=== PATIENT | female | born 1960 | race Caucasian/White ===

== ENCOUNTER → 2017-04-13 | Outpatient (CLI) | payer OTHER | LOC: BMCIMAGING 08:27 | PROVIDERS: ATTEND Physician Assistant Medical | DX: Z12.31 Encounter for screening mammogram for malignant neoplasm of breast (principal) | CPT/HCPCS: G0202 ==

== ENCOUNTER 2017-07-03 16:12 | Emergency (ER) | payer OTHER ==
[2017-07-03 16:24] VITALS: RESP 18; TEMP 98.2
[2017-07-03] MEDS ORDERED: LISINOPRIL 20 MG TAB PO ONE (17:27)
[2017-07-03] MEDS ORDERED: MAG HYDROX/AL HYDROX/SIMETH 30 ML UDCUP PO ONE (17:27)
[2017-07-03] MEDS ORDERED: LIDOCAINE 2% VISCOUS 15 ML UDCUP PO ONE (17:27)
[2017-07-03] MEDS ORDERED: HYOSCYAMINE SULFATE 0.125 MG TAB PO ONE (17:27)
--- NOTE | 2017-07-03 17:32 | EDPHY ---
H & P Stated Complaint: upper abd pain x 2 wks usually resolves with pepcid/worse today/nausea Time Seen by Provider: 07/03/17 16:30 HPI/ROS: CHIEF COMPLAINT: Abdominal pain HISTORY OF PRESENT ILLNESS: This is a 57-year-old female with a history of hypertension, hepatitis-C for which treatment was not recommended, and cholecystectomy who presents with over 1 week of midepigastric discomfort. The discomfort became markedly worse today, about 3 hr ago. She took Pepcid and has had improvement since then. However she continues to feel midepigastric pain, dull in nature. She does not have nausea or vomiting. She has not had diarrhea or constipation. No urinary symptoms. No fever. She did not take her antihypertensive medications today. REVIEW OF SYSTEMS: A ten point review of systems was performed and is negative with the exception of the items mentioned in the HPI. Past medical/surgical history: 1. Hypertension 2. Hepatitis-C, no treatment 3. 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 She does not use tobacco products. General Appearance: Alert. Vital signs reviewed. Initial blood pressure 213/ 100 with repeat blood pressure of 196/103. Eyes: Pupils equal and round, no conjunctival injection, no discharge. Anicteric. ENT, Mouth: Mucous membranes are moist, no oropharyngeal erythema or edema. Neck: No lymphadenopathy, supple. Respiratory: Lungs are clear to auscultation; no wheezes, rales, or rhonchi. Cardiovascular: Regular rate and rhythm; no murmur, rub, or gallop. Gastrointestinal: Abdomen is soft and mildly tender in the midepigastrium, no guarding, no masses or organomegaly, bowel sounds normal. Skin: Warm and dry, no rashes on exposed skin, normal color. Back: Nontender to palpation over the thoracolumbar spine. No CVAT. Extremities: No lower extremity edema, no calf tenderness or swelling. Neurological: Alert and oriented. Moving all four extremities easily and equally. CRISTA. EOMI. Tongue midline. Facial expression symmetric. Psychiatric: Normal affect. - Personal History Current Tetanus/Diphtheria Vaccine: Yes - Medical/Surgical History Hx Asthma: No Hx Chronic Respiratory Disease: No Hx Diabetes: No Hx Cardiac Disease: No Hx Renal Disease: No Hx Cirrhosis: No Hx Alcoholism: No Hx HIV/AIDS: No Hx Splenectomy or Spleen Trauma: No Other PMH: hep c/htn - Social History Smoking Status: Never smoked Constitutional: Initial Vital Signs Temperature (C) 36.8 C 07/03/17 16:21 Heart Rate 54 L 07/03/17 16:21 Respiratory Rate 18 07/03/17 16:21 Blood Pressure 213/100 H 07/03/17 16:21 O2 Sat (%) 94 07/03/17 16:21 O2 Delivery Mode Room Air Allergies/Adverse Reactions: No Known Allergies Allergy (Unverified 07/03/17 16:20) Home Medications: Medication Instructions Recorded Lisinopril 07/03/17 Metoprolol Succinate 07/03/17 Pantoprazole Sodium [Protonix 40mg 40 mg PO DAILY #30 tab 07/03/17 (*)] Medical Decision Making ED Course/Re-evaluation: Patient has been hypertensive in the emergency department. She did not take her metoprolol or her lisinopril today. As it is 5:30 p.m. when I see her and she normally takes her medications at 6:30 a.m. In the morning, I will give her a partial dose of her lisinopril. Blood pressure at discharge was 161/94. She has taken Pepcid earlier today and had some relief with this medication. She has been taking it during the past week. Will try GI cocktail. CBC, chemistries, lipase, liver functions ordered. Labs reviewed. Her sodium is very slightly high at 147. She does have an anion gap of 17. Calcium is also very slightly high at 10.5. Lipase and liver functions are normal. Nothing to suggest biliary disease or pancreatitis. She has had her gallbladder removed. I am concerned about the possibility of peptic ulcer disease/gastritis. She does not drink alcohol. I am recommending follow up with Gastroenterology and have provided a referral. We also reviewed the danger signs that should prompt her to return to the emergency department. She feels somewhat better in the department, perhaps partly due the to the Pepcid that she took prior to her presentation. She was in the department long enough that I would have expected the lidocaine that was in the GI cocktail to have worn off. On reexamination her abdomen remains soft with some mild midepigastric tenderness and no guarding. I do not suspect viscus perforation. She does not have a surgical abdomen. She is given a small quantity of [place] to use in case of pain at home. I am writing her prescription for pantoprazole also. She will try this instead of Pepcid. Differential Diagnosis: I considered a differential diagnosis that includes but is not limited to pancreatitis, gastritis/peptic ulcer disease, GERD, biliary disease/retained stone, viscus perforation, and bowel obstruction. - Data Points Laboratory Results: Laboratory Results 07/03/17 16:35 07/03/17 16:35 Medications Given: Discontinued Medications Hydrocodone Bitart/Acetaminophen ([place] 5/325mg Prepack#6) 1 btl TAKEHOME EDNOW ONE Stop: 07/03/17 19:06 Last Admin: 07/03/17 19:18 Dose: 1 btl Al Hydroxide/Mg Hydroxide (Maalox Susp) 30 ml PO ONCE ONE Stop: 07/03/17 17:28 Last Admin: 07/03/17 17:36 Dose: 30 ml Hyoscyamine Sulfate (Levsin, Hyomax-Sl) 0.25 mg PO ONCE ONE Stop: 07/03/17 17:28 Last Admin: 07/03/17 17:36 Dose: 0.25 mg Lidocaine (Lidocaine 2% Viscous) 15 ml PO ONCE ONE Stop: 07/03/17 17:28 Last Admin: 07/03/17 17:36 Dose: 15 ml Lisinopril (Zestril) 40 mg PO EDNOW ONE Stop: 07/03/17 17:28 Last Admin: 07/03/17 17:35 Dose: 40 mg Departure - Departure Disposition: Home, Routine, Self-Care Clinical Impression: Abdominal pain Qualifiers: Abdominal location: epigastric Qualified Code(s): R10.13 - Epigastric pain Condition: Good Instructions: Hydrocodone/Acetaminophen (By mouth), Gastritis (ED), Acute Abdominal Pain (ED) Additional Instructions: I am referring you to Dr. Nesbitt, gastroenterology. It is fine for you to see any of the doctors in that group. I recommend that you call tomorrow and set up an appointment. Let the staff know that you been having this pain that you were seen in the emergency department. Referrals: Kiley Cope PA [Primary Care Provider] - As per Instructions Kevin Nesbitt MD [Medical Doctor] - As per Instructions Prescriptions: Pantoprazole Sodium [Protonix 40mg (*)] 40 mg PO DAILY #30 tab
[2017-07-03 17:33] LABS: PLATELET COUNT 233 10^3/uL (150-400)
[2017-07-03] MEDS ORDERED: HYDROCOD/APAP 5/325 PREPACK#6 BTL TAKEHOME ONE (19:05)
[2017-07-03 19:23] VITALS: BP 161/94; PULSE 78; O2SAT 94
== END 2017-07-03 19:22 | disposition home or self-care (01) ==
DX: R10.13 Epigastric pain (principal); I10 Essential (primary) hypertension